=== PATIENT | female | born 1960 ===

== ENCOUNTER 2019-01-09 20:06 | Emergency (ER) | payer OTHER ==
--- NOTE | 2019-01-09 21:46 | ULT ---
EXAM: Left lower extremity venous ultrasound HISTORY: Left lower extremity pain and edema; varicose vein surgery on 12/04/2018. COMPARISON: None TECHNIQUE: Multiplanar grayscale and color Doppler images were obtained in a left lower extremity rehan ous ultrasound. Spectral analysis of the Doppler waveforms were performed. FINDINGS: The common femoral vein, profunda femoral vein, superficial femoral vein, and popliteal vei n are normal in appearance without visible thrombus. These vessels demonstrate normal compression, flow, and augmentation. Thrombus is seen throughout the length of the greater saphenous vein which was the structure ablated during the recent procedure. IMPRESSION: 1. No evidence of DVT. 2. Thrombus seen within the greater saphenous vein.
== END 2019-01-09 22:05 | disposition home or self-care (01) ==
LOC: SCSER 20:06
DX: I80.02 Phlebitis and thrombophlebitis of superficial vessels of left lower extremity (principal); E03.9 Hypothyroidism, unspecified; F41.9 Anxiety disorder, unspecified; F32.9 Major depressive disorder, single episode, unspecified; Z79.82 Long term (current) use of aspirin